=== PATIENT | male | born 1960 | race Caucasian/White ===

== ENCOUNTER 2017-06-11 20:25 | Emergency (ER) | payer MEDICARE, OTHER ==
[~2017-06-11] VITALS: Ht 165.1 cm; Wt 79.5 kg
[2017-06-11] MEDS ORDERED: TOPI100T37 PO (20:32)
[2017-06-11] MEDS ORDERED: LEVO100 PO (20:32)
[2017-06-11] MEDS ORDERED: ADV250 IH (20:32)
[2017-06-11] MEDS ORDERED: LAMO100 PO (20:32)
[2017-06-11] MEDS ORDERED: HYD25 PO (20:32)
[2017-06-11] MEDS ORDERED: CARV6 PO (20:32)
[2017-06-11] MEDS ORDERED: CLON2 PO (20:32)
[2017-06-11] MEDS ORDERED: LOSA50TA37 PO (20:32)
[2017-06-11] MEDS ORDERED: CARB200T6 PO (20:32)
[2017-06-11] MEDS ORDERED: VITAD400 PO (20:32)
[2017-06-11] MEDS ORDERED: OS500 PO (20:32)
[2017-06-11] MEDS ORDERED: LORazepam 2 MG/ML VIAL ONE (20:32)
[2017-06-11] MEDS ORDERED: ATOR40TA28 PO (20:32)
[2017-06-11] MEDS ORDERED: PERID15L MM (20:32)
[2017-06-11] MEDS ORDERED: LORazepam 2 MG/ML VIAL IVP ONE (20:45)
[2017-06-11 20:55] LABS: EOSINOPHILS % (AUTO) 0.2 % (1.0-6.0); HEMATOCRIT 39.7 % (41-53); HEMOGLOBIN 13.7 g/dL (13.5-17.5); LYMPHOCYTES # (AUTO) 2.8 K/uL (1.0-4.8); LYMPHOCYTES % (AUTO) 44.1 % (22.0-44.0); MEAN CORPUSCULAR HEMOGLOBIN 31.7 pg (26.0-34.0); MEAN CORPUSCULAR HGB CONC 34.4 G/dL (31.0-37.0); MEAN CORPUSCULAR VOLUME 92 fL (80-100); MONOCYTES # (AUTO) 0.7 K/uL (0.1-1.0); MONOCYTES % (AUTO) 10.2 % (2.0-9.0); NEUTROPHILS # (AUTO) 2.9 K/uL (1.8-7.7); NEUTROPHILS % (AUTO) 44.5 % (40.0-70.0); PLATELET COUNT (AUTO) 270 K/uL (150-450); RED BLOOD CELL COUNT(AUTO) 4.31 MIL/uL (4.50-5.90); RED CELL DISTRIBUTION WIDTH 12.9 % (11.5-14.5)
[2017-06-11 21:09] LABS: ANION GAP 8 mmol/L (8-16); CALCIUM, TOTAL 9.1 mg/dL (8.8-10.5); CARBON DIOXIDE 26 mmol/L (22-29); CHLORIDE 98 mmol/L (98-107); CREATININE 0.72 mg/dL (0.60-1.30); GLOMERULAR FILTR. RATE CALC > 60 mL/min (>60); GLUCOSE,RANDOM 105 mg/dL (70-110); POTASSIUM 4.5 mmol/L (3.5-5.1); SODIUM SERUM 132 mmol/L (136-145); UREA NITROGEN, BLOOD 13 mg/dL (7-18)
[2017-06-11 21:14] LABS: ALANINE AMINOTRANSFERASE 29 U/L (12-78); ALBUMIN 4.3 g/dL (3.4-5.0); ALKALINE PHOSPHATASE 134 U/L (46-116); ASPARTATE AMINOTRANSFERASE 27 U/L (15-37); BILIRUBIN,TOTAL 0.2 mg/dL (0.1-1.0); TOTAL PROTEIN, SERUM 8.6 g/dL (6.4-8.2)
[2017-06-11 21:25] LABS: CARBAMAZEPINE (TEGRETOL) 9.6 mcg/mL (4.0-12.0)
[2017-06-12 02:46] VITALS: BP 126/85
== END 2017-06-12 02:54 | disposition home or self-care (01) ==
LOC: EMS 20:27
DX: R56.9 Unspecified convulsions (principal); S00.01XA Abrasion of scalp, initial encounter; I10 Essential (primary) hypertension; E78.00 Pure hypercholesterolemia, unspecified; E03.9 Hypothyroidism, unspecified; J45.909 Unspecified asthma, uncomplicated; X58.XXXA Exposure to other specified factors, initial encounter; Y93.89 Activity, other specified; Y92.89 Other specified places as the place of occurrence of the external cause; Y99.8 Other external cause status
CPT/HCPCS: 36415; 70450; 80053; 80156; 85025; 93005; 96374; 99285; G0480; J2060

== ENCOUNTER 2018-03-12 18:42 | Emergency (ER) | payer MEDICARE, OTHER ==
[~2018-03-12] VITALS: Ht 172.7 cm; Wt 84.2 kg
[~2018-03-12 18:42] MED LIST: ADV250 IH; ATOR40TA28 PO; CARB200T6 PO; CARV6 PO; CLON2 PO; HYD25 PO; LAMO100 PO; LEVO100 PO; LOSA50TA64 PO; OS500 PO; PERID15L MM; TOPI100T37 PO; VITAD400 PO
[2018-03-12 19:06] VITALS: BP 147/98
[2018-03-12] MEDS ORDERED: FLUT1AER IH (19:19)
[2018-03-12 19:55] LABS: BASOPHILS % (AUTO) 0.4 % (0.0-2.0); EOSINOPHILS % (AUTO) 0 % (1.0-6.0); HEMATOCRIT 38.9 % (41-53); HEMOGLOBIN 13.4 g/dL (13.5-17.5); LYMPHOCYTES % (AUTO) 44.9 % (22.0-44.0); MEAN CORPUSCULAR HEMOGLOBIN 32.4 pg (26.0-34.0); MEAN CORPUSCULAR HGB CONC 34.5 G/dL (31.0-37.0); MEAN CORPUSCULAR VOLUME 94 fL (80-100); MONOCYTES # (AUTO) 0.4 K/uL (0.1-1.0); NEUTROPHILS % (AUTO) 45.7 % (40.0-70.0); PLATELET COUNT (AUTO) 283 K/uL (150-450); RED BLOOD CELL COUNT(AUTO) 4.14 MIL/uL (4.50-5.90)
[2018-03-12 20:04] LABS: ANION GAP 10 mmol/L (8-16); CALCIUM, TOTAL 9.3 mg/dL (8.8-10.5); CARBON DIOXIDE 26 mmol/L (22-29); CHLORIDE 98 mmol/L (98-107); CREATININE 0.85 mg/dL (0.60-1.30); GLOMERULAR FILTR. RATE CALC > 60 mL/min (>60); GLUCOSE,RANDOM 106 mg/dL (70-110); POTASSIUM 3.5 mmol/L (3.5-5.1); SODIUM SERUM 134 mmol/L (136-145); UREA NITROGEN, BLOOD 9 mg/dL (7-18)
[2018-03-12 20:10] LABS: AMMONIA 46 umol/L (11-32)
[2018-03-12 20:14] LABS: TROPONIN I < 0.02 ng/mL (0.00-0.05)
[2018-03-12] MEDS ORDERED: GuaiFENesin/D-METHORPHAN [SUGAR-FREE] 200-20MG/10 ML SYRUP UDCUP PO ONE (20:15)
[2018-03-12] MEDS ORDERED: ACETAMINOPHEN 500 MG TABLET PO ONE (20:15)
[2018-03-12 20:18] LABS: ALANINE AMINOTRANSFERASE 33 U/L (12-78); ALBUMIN 3.8 g/dL (3.4-5.0); ALKALINE PHOSPHATASE 102 U/L (46-116); ASPARTATE AMINOTRANSFERASE 31 U/L (15-37); BILIRUBIN,TOTAL 0.2 mg/dL (0.1-1.0); TOTAL PROTEIN, SERUM 7.7 g/dL (6.4-8.2)
[2018-03-12 20:30] LABS: CARBAMAZEPINE (TEGRETOL) 8.7 mcg/mL (4.0-12.0)
[2018-03-12] MEDS ORDERED: LACTULOSE 20 GM/30 ML SOLUTION UDCUP NG ONE (20:30)
[2018-03-12 21:03] LABS: AMPHET/METH SCREEN,URINE NEGATIVE (NEGATIVE); BARBITURATE SCREEN, URINE NEGATIVE (NEGATIVE); BENZODIAZEPINES SCREEN,URINE NEGATIVE (NEGATIVE); CANNABINOID SCREEN,URINE NEGATIVE (NEGATIVE); COCAINE SCREEN,URINE NEGATIVE (NEGATIVE); METHADONE SCREEN, URINE NEGATIVE (NEGATIVE); OPIATE SCREEN,URINE NEGATIVE (NEGATIVE)
[2018-03-12 21:04] LABS: PHENCYCLIDINE SCREEN,URINE NEGATIVE (NEGATIVE)
== END 2018-03-12 20:52 | disposition home or self-care (01) ==
LOC: EMS 18:42
DX: J06.9 Acute upper respiratory infection, unspecified (principal); R41.82 Altered mental status, unspecified; E72.20 Disorder of urea cycle metabolism, unspecified; J45.909 Unspecified asthma, uncomplicated; E78.00 Pure hypercholesterolemia, unspecified; I10 Essential (primary) hypertension; E03.9 Hypothyroidism, unspecified
CPT/HCPCS: 36415; 80053; 80156; 80307; 82140; 84484; 85025; 99284; G0480

== ENCOUNTER 2018-03-13 16:35 | Emergency (ER) | payer MEDICARE, OTHER ==
[~2018-03-13] VITALS: Ht 172.7 cm; Wt 72.7 kg
[~2018-03-13 16:35] MED LIST changes: +FLUT1AER IH
[2018-03-13] MEDS ORDERED: LORazepam 2 MG/ML VIAL IVP ONE ×2 (17:00→17:45)
[2018-03-13 17:17] LABS: BASOPHILS % (AUTO) 0.5 % (0.0-2.0); EOSINOPHILS % (AUTO) 0 % (1.0-6.0); HEMATOCRIT 40.4 % (41-53); HEMOGLOBIN 13.6 g/dL (13.5-17.5); LYMPHOCYTES # (AUTO) 2.3 K/uL (1.0-4.8); LYMPHOCYTES % (AUTO) 45.5 % (22.0-44.0); MEAN CORPUSCULAR HEMOGLOBIN 31.7 pg (26.0-34.0); MEAN CORPUSCULAR HGB CONC 33.6 G/dL (31.0-37.0); MEAN CORPUSCULAR VOLUME 94 fL (80-100); MONOCYTES # (AUTO) 0.4 K/uL (0.1-1.0); MONOCYTES % (AUTO) 8.4 % (2.0-9.0); NEUTROPHILS # (AUTO) 2.3 K/uL (1.8-7.7); NEUTROPHILS % (AUTO) 45.6 % (40.0-70.0); PLATELET COUNT (AUTO) 292 K/uL (150-450); RED BLOOD CELL COUNT(AUTO) 4.27 MIL/uL (4.50-5.90); RED CELL DISTRIBUTION WIDTH 13.1 % (11.5-14.5)
[2018-03-13 17:34] LABS: ANION GAP 8 mmol/L (8-16); CALCIUM, TOTAL 9.4 mg/dL (8.8-10.5); CARBON DIOXIDE 25 mmol/L (22-29); CHLORIDE 101 mmol/L (98-107); CREATININE 0.83 mg/dL (0.60-1.30); GLOMERULAR FILTR. RATE CALC > 60 mL/min (>60); GLUCOSE,RANDOM 128 mg/dL (70-110); POTASSIUM 3.8 mmol/L (3.5-5.1); SODIUM SERUM 134 mmol/L (136-145); UREA NITROGEN, BLOOD 12 mg/dL (7-18)
[2018-03-13 17:40] LABS: ALANINE AMINOTRANSFERASE 34 U/L (12-78); ALBUMIN 4.1 g/dL (3.4-5.0); ALKALINE PHOSPHATASE 133 U/L (46-116); ASPARTATE AMINOTRANSFERASE 30 U/L (15-37); CARBAMAZEPINE (TEGRETOL) 11.1 mcg/mL (4.0-12.0); LIPASE 161 U/L (73-393); TOTAL PROTEIN, SERUM 7.8 g/dL (6.4-8.2)
[2018-03-13 17:41] LABS: AMMONIA 35 umol/L (11-32)
[2018-03-13 17:43] LABS: TROPONIN I < 0.02 ng/mL (0.00-0.05)
[2018-03-13 18:21] LABS: BILIRUBIN,TOTAL 0.1 mg/dL (0.1-1.0)
[2018-03-13] MEDS ORDERED: KETOROLAC TROMETHAMINE 30 MG/ML VIAL IVP ONE (18:45)
[2018-03-13] MEDS ORDERED: ACETAMINOPHEN 500 MG TABLET PO ONE (18:45)
[2018-03-13] MEDS ORDERED: ClonazePAM 1 MG TABLET PO ONE (18:45)
[2018-03-13] MEDS ORDERED: TOPIRAMATE 100 MG TABLET PO ONE (19:45)
[2018-03-13] MEDS ORDERED: LamoTRIgine 100 MG TABLET PO ONE (19:45)
[2018-03-13] MEDS ORDERED: CarBAMazepine 200 MG TABLET PO ONE (19:45)
[2018-03-13 20:22] VITALS: BP 127/64
== END 2018-03-13 20:35 | disposition home or self-care (01) ==
LOC: EMS 16:37
DX: G40.909 Epilepsy, unspecified, not intractable, without status epilepticus (principal); E03.9 Hypothyroidism, unspecified; I10 Essential (primary) hypertension; J45.909 Unspecified asthma, uncomplicated; E78.00 Pure hypercholesterolemia, unspecified; Z79.899 Other long term (current) drug therapy
CPT/HCPCS: 71045; 80053; 80156; 82140; 83690; 84484; 85025; 93005; 96374; 96375; 99285; G0480; J1885; J2060

== ENCOUNTER 2018-03-13 21:46 | Inpatient (IN) | payer MEDICARE, OTHER ==
[~2018-03-13] VITALS: Ht 172.7 cm; Wt 86.6 kg
[~2018-03-13 21:46] MED LIST changes: -ADV250 IH; -HYD25 PO; -PERID15L MM
[2018-03-13 22:19] LABS: GLUCOSE,POINT OF CARE 100 MG/DL (70-110)
[2018-03-14] VITALS (7 sets, daily range): BP systolic 111–147; BP diastolic 56–86
[2018-03-14 09:52] LABS: AMPHET/METH SCREEN,URINE NEGATIVE (NEGATIVE); BARBITURATE SCREEN, URINE NEGATIVE (NEGATIVE); BENZODIAZEPINES SCREEN,URINE POSITIVE (NEGATIVE); CANNABINOID SCREEN,URINE NEGATIVE (NEGATIVE); COCAINE SCREEN,URINE NEGATIVE (NEGATIVE); METHADONE SCREEN, URINE NEGATIVE (NEGATIVE); OPIATE SCREEN,URINE NEGATIVE (NEGATIVE); PHENCYCLIDINE SCREEN,URINE NEGATIVE (NEGATIVE)
[2018-03-14 10:21] LABS: APPEARANCE,URINE CLOUDY (CLEAR); BILIRUBIN,URINE NEGATIVE (NEGATIVE); GLUCOSE, URINE (UA) NEGATIVE (NEGATIVE); KETONES,URINE NEGATIVE (NEGATIVE); LEUKOCYTE ESTERASE ,URINE SMALL (NEGATIVE); NITRATE,URINE NEGATIVE (NEGATIVE); OCCULT BLOOD,URINE LARGE (NEGATIVE); PROTEIN,URINE POS 1+ (NEGATIVE); UROBILINOGEN,URINE 0.2 mg/dL (<=1.0)
[2018-03-14 10:32] LABS: BACTERIA,URINE Few /HPF (None Seen); CALCIUM OXALATE CRYSTALS,UR Few /LPF (None Seen); SQUAMOUS EPITHELIAL CELL,UR Few /LPF (None Seen)
[2018-03-14] MEDS ORDERED: MAGNESIUM HYDROXIDE SUSPENSION 30 ML UDCUP PO PRN (11:00)
[2018-03-14] MEDS ORDERED: LORazepam 2 MG/ML VIAL IM PRN (11:00)
[2018-03-14] MEDS ORDERED: ONDANSETRON HCL 4 MG/2 ML VIAL IVP PRN (11:00)
[2018-03-14] MEDS ORDERED: ACETAMINOPHEN 325 MG TABLET PO PRN (11:00)
[2018-03-14] MEDS ORDERED: ZOLPIDEM TARTRATE 5 MG TABLET PO PRN (11:00)
[2018-03-14] MEDS ORDERED: MORPHINE SULFATE 4 MG/ML SYRINGE IVP PRN (11:00)
[2018-03-14] MEDS ORDERED: GuaiFENesin/D-METHORPHAN [SUGAR-FREE] 200-20MG/10 ML SYRUP UDCUP PO PRN (11:00)
[2018-03-14] MEDS ORDERED: BISACODYL 10 MG RECTAL RECTAL SUPPOSITORY PR PRN (11:00)
[2018-03-14] MEDS ORDERED: HYDROCODONE/ACETAMINOPHEN 5-325 MG TABLET PO PRN (11:00)
[2018-03-14] MEDS ORDERED: SODIUM CHLORIDE 0.9% 500 ML IV ONE (11:50)
[2018-03-14] MEDS: CefTRIAXone 1 GM/DEXTROSE 50 ML IV SCH (11:53)
[2018-03-14 12:08] LABS: ANION GAP 10 mmol/L (8-16); BASOPHILS % (AUTO) 0.7 % (0.0-2.0); CALCIUM, TOTAL 9.1 mg/dL (8.8-10.5); CARBON DIOXIDE 24 mmol/L (22-29); CHLORIDE 101 mmol/L (98-107); CREATININE 0.78 mg/dL (0.60-1.30); EOSINOPHILS % (AUTO) 0 % (1.0-6.0); GLOMERULAR FILTR. RATE CALC > 60 mL/min (>60); GLUCOSE,RANDOM 92 mg/dL (70-110); HEMATOCRIT 40.1 % (41-53); HEMOGLOBIN 13.6 g/dL (13.5-17.5); LYMPHOCYTES # (AUTO) 2.1 K/uL (1.0-4.8); LYMPHOCYTES % (AUTO) 33.8 % (22.0-44.0); MEAN CORPUSCULAR HEMOGLOBIN 31.9 pg (26.0-34.0); MEAN CORPUSCULAR HGB CONC 33.8 G/dL (31.0-37.0); MEAN CORPUSCULAR VOLUME 94 fL (80-100); MONOCYTES # (AUTO) 0.7 K/uL (0.1-1.0); MONOCYTES % (AUTO) 10.9 % (2.0-9.0); NEUTROPHILS # (AUTO) 3.4 K/uL (1.8-7.7); NEUTROPHILS % (AUTO) 54.6 % (40.0-70.0); PLATELET COUNT (AUTO) 288 K/uL (150-450); POTASSIUM 3.7 mmol/L (3.5-5.1); RED BLOOD CELL COUNT(AUTO) 4.26 MIL/uL (4.50-5.90); SODIUM SERUM 135 mmol/L (136-145); UREA NITROGEN, BLOOD 16 mg/dL (7-18)
[2018-03-14] MEDS: ClonazePAM 1 MG TABLET PO SCH ×2 (15:52→20:46)
[2018-03-14] MEDS: HEPARIN SODIUM,PORCINE 5,000 UNITS/ML VIAL SQ SCH ×2 (15:52→23:43)
[2018-03-14] MEDS: LamoTRIgine 100 MG TABLET PO SCH (20:46)
[2018-03-14] MEDS: TOPIRAMATE 100 MG TABLET PO SCH (20:46)
[2018-03-14] MEDS: CarBAMazepine 200 MG TABLET PO SCH (20:46)
[2018-03-14] MEDS: DOCUSATE SODIUM 100 MG CAPSULE PO SCH (20:46)
[2018-03-14] MEDS: CALCIUM OYSTER SHELL 500 MG TABLET PO SCH (20:46)
[2018-03-14] MEDS: CARVEDILOL 6.25 MG TABLET PO SCH (20:47)
[2018-03-15] VITALS (7 sets, daily range): BP systolic 118–139; BP diastolic 65–78
[2018-03-15] MEDS: LEVOTHYROXINE SODIUM 100 MCG TABLET PO SCH (06:28)
[2018-03-15] MEDS: CALCIUM OYSTER SHELL 500 MG TABLET PO SCH ×2 (09:13→20:45)
[2018-03-15] MEDS: ATORVASTATIN CALCIUM 40 MG TABLET PO SCH (09:14)
[2018-03-15] MEDS: HEPARIN SODIUM,PORCINE 5,000 UNITS/ML VIAL SQ SCH ×3 (09:14→23:26)
[2018-03-15] MEDS: DOCUSATE SODIUM 100 MG CAPSULE PO SCH ×2 (09:14→20:45)
[2018-03-15] MEDS: PANTOPRAZOLE SODIUM 40 MG DR TABLET PO SCH (09:14)
[2018-03-15] MEDS: LOSARTAN POTASSIUM 50 MG TABLET PO SCH (09:15)
[2018-03-15] MEDS: CHOLECALCIFEROL (VIT D3) 400 UNITS TABLET PO SCH (09:15)
[2018-03-15] MEDS: ClonazePAM 1 MG TABLET PO SCH ×3 (09:15→20:46)
[2018-03-15] MEDS: FLUTICASONE/VILANTEROL 100-25 MCG/INH INHALER [14] IH SCH (09:16)
[2018-03-15] MEDS: LamoTRIgine 100 MG TABLET PO SCH ×2 (09:16→20:46)
[2018-03-15] MEDS: TOPIRAMATE 100 MG TABLET PO SCH ×2 (09:17→20:46)
[2018-03-15] MEDS: CarBAMazepine 200 MG TABLET PO SCH ×2 (09:17→20:46)
[2018-03-15] MEDS ORDERED: GuaiFENesin/D-METHORPHAN [SUGAR-FREE] 200-20MG/10 ML SYRUP UDCUP PO PRN (11:00)
[2018-03-15] MEDS: CARVEDILOL 6.25 MG TABLET PO SCH ×2 (11:23→20:45)
[2018-03-15] MEDS: CefTRIAXone 1 GM/DEXTROSE 50 ML IV SCH (11:23)
[2018-03-15] MEDS ORDERED: LORazepam 2 MG/ML VIAL IVP PRN (23:00)
[2018-03-16 04:04] VITALS: BP 115/68
[2018-03-16] MEDS: LEVOTHYROXINE SODIUM 100 MCG TABLET PO SCH (05:36)
[2018-03-16 07:37] VITALS: BP 121/69
[2018-03-16 08:10] LABS: INFLUENZA TYPE A NEGATIVE FOR TYPE A (NEGATIVE); INFLUENZA TYPE B NEGATIVE FOR TYPE B (NEGATIVE)
[2018-03-16] MEDS: LOSARTAN POTASSIUM 50 MG TABLET PO SCH (08:49)
[2018-03-16] MEDS: DOCUSATE SODIUM 100 MG CAPSULE PO SCH ×2 (08:49→20:48)
[2018-03-16] MEDS: PANTOPRAZOLE SODIUM 40 MG DR TABLET PO SCH (08:49)
[2018-03-16] MEDS: HEPARIN SODIUM,PORCINE 5,000 UNITS/ML VIAL SQ SCH ×2 (08:49→16:48)
[2018-03-16] MEDS: CALCIUM OYSTER SHELL 500 MG TABLET PO SCH ×2 (08:49→20:48)
[2018-03-16] MEDS: FLUTICASONE/VILANTEROL 100-25 MCG/INH INHALER [14] IH SCH (08:50)
[2018-03-16] MEDS: ClonazePAM 1 MG TABLET PO SCH ×3 (08:50→20:48)
[2018-03-16] MEDS: ATORVASTATIN CALCIUM 40 MG TABLET PO SCH (08:50)
[2018-03-16] MEDS: CHOLECALCIFEROL (VIT D3) 400 UNITS TABLET PO SCH (08:50)
[2018-03-16] MEDS: CarBAMazepine 200 MG TABLET PO SCH ×2 (08:51→20:49)
[2018-03-16] MEDS: TOPIRAMATE 100 MG TABLET PO SCH ×2 (08:51→20:49)
[2018-03-16] MEDS: LamoTRIgine 100 MG TABLET PO SCH ×2 (08:52→20:48)
[2018-03-16 11:14] VITALS: BP 137/78
[2018-03-16] MEDS: CARVEDILOL 6.25 MG TABLET PO SCH ×2 (11:27→20:48)
[2018-03-16] MEDS: CefTRIAXone 1 GM/DEXTROSE 50 ML IV SCH (11:28)
[2018-03-16 15:22] VITALS: BP 109/70
[2018-03-16 20:07] VITALS: BP 114/66
[2018-03-17] MEDS: HEPARIN SODIUM,PORCINE 5,000 UNITS/ML VIAL SQ SCH ×3 (00:15→16:00)
[2018-03-17 00:30] VITALS: BP 117/71
[2018-03-17 04:50] VITALS: BP 120/70
[2018-03-17] MEDS: LEVOTHYROXINE SODIUM 100 MCG TABLET PO SCH (06:44)
[2018-03-17 08:25] VITALS: BP 120/71
[2018-03-17] MEDS: DOCUSATE SODIUM 100 MG CAPSULE PO SCH (09:06)
[2018-03-17] MEDS: CHOLECALCIFEROL (VIT D3) 400 UNITS TABLET PO SCH (09:06)
[2018-03-17] MEDS: CARVEDILOL 6.25 MG TABLET PO SCH (09:07)
[2018-03-17] MEDS: ClonazePAM 1 MG TABLET PO SCH (09:07)
[2018-03-17] MEDS: CALCIUM OYSTER SHELL 500 MG TABLET PO SCH (09:07)
[2018-03-17] MEDS: PANTOPRAZOLE SODIUM 40 MG DR TABLET PO SCH (09:08)
[2018-03-17] MEDS: CarBAMazepine 200 MG TABLET PO SCH (09:08)
[2018-03-17] MEDS: LamoTRIgine 100 MG TABLET PO SCH (09:08)
[2018-03-17] MEDS: LOSARTAN POTASSIUM 50 MG TABLET PO SCH (09:08)
[2018-03-17] MEDS: TOPIRAMATE 100 MG TABLET PO SCH (09:08)
[2018-03-17] MEDS: FLUTICASONE/VILANTEROL 100-25 MCG/INH INHALER [14] IH SCH (09:10)
[2018-03-17] MEDS: ATORVASTATIN CALCIUM 40 MG TABLET PO SCH (09:23)
[2018-03-17 11:43] VITALS: BP 122/69
[2018-03-17 15:20] VITALS: BP 114/60
== END 2018-03-17 17:17 | disposition home or self-care (01) | DRG 101 ==
LOC: EMS 21:48 → 5N 03-14 00:01
PROVIDERS: ADMIT Internal Medicine; ATTEND Internal Medicine
DX: G40.909 Epilepsy, unspecified, not intractable, without status epilepticus (principal); N39.0 Urinary tract infection, site not specified; J06.9 Acute upper respiratory infection, unspecified; E78.5 Hyperlipidemia, unspecified; I10 Essential (primary) hypertension; E03.9 Hypothyroidism, unspecified; E55.9 Vitamin D deficiency, unspecified; E78.00 Pure hypercholesterolemia, unspecified; F29 Unspecified psychosis not due to a substance or known physiological condition; J45.909 Unspecified asthma, uncomplicated; Z79.899 Other long term (current) drug therapy
CPT/HCPCS: 70450; 80307; 87086; 87804; 93005; G0378; J0696; J1644; J2060; J2405; J7040

== ENCOUNTER 2018-10-11 10:14 | Inpatient (IN) | payer MEDICARE, OTHER ==
[~2018-10-11] VITALS: Ht 172.7 cm; Wt 87.2 kg
[~2018-10-11 10:14] MED LIST changes: -LOSA50TA64 PO
[2018-10-11] MEDS ORDERED: CLON1 PO (10:38)
[2018-10-11 11:14] LABS: BASOPHILS % (AUTO) 0.3 % (0.0-2.0); EOSINOPHILS % (AUTO) 0 % (1.0-6.0); HEMATOCRIT 39.6 % (41-53); HEMOGLOBIN 13.3 g/dL (13.5-17.5); LYMPHOCYTES # (AUTO) 1.5 K/uL (1.0-4.8); MEAN CORPUSCULAR HEMOGLOBIN 32.3 pg (26.0-34.0); MEAN CORPUSCULAR HGB CONC 33.5 G/dL (31.0-37.0); MEAN CORPUSCULAR VOLUME 97 fL (80-100); MONOCYTES # (AUTO) 0.4 K/uL (0.1-1.0); MONOCYTES % (AUTO) 8.3 % (2.0-9.0); NEUTROPHILS # (AUTO) 3.1 K/uL (1.8-7.7); NEUTROPHILS % (AUTO) 61.4 % (40.0-70.0); PLATELET COUNT (AUTO) 266 K/uL (150-450); RED BLOOD CELL COUNT(AUTO) 4.11 MIL/uL (4.50-5.90); RED CELL DISTRIBUTION WIDTH 13.1 % (11.5-14.5)
[2018-10-11 11:24] LABS: ANION GAP 8 mmol/L (8-16); CALCIUM, TOTAL 9.9 mg/dL (8.8-10.5); CARBON DIOXIDE 24 mmol/L (22-29); CHLORIDE 102 mmol/L (98-107); CREATININE 0.89 mg/dL (0.60-1.30); GLOMERULAR FILTR. RATE CALC > 60 mL/min (>60); GLUCOSE,RANDOM 93 mg/dL (70-110); POTASSIUM 3.6 mmol/L (3.5-5.1); SODIUM SERUM 134 mmol/L (136-145); UREA NITROGEN, BLOOD 15 mg/dL (7-18)
[2018-10-11 11:29] LABS: PROTHROMBIN TIME 10.1 SEC (9.4-11.6)
[2018-10-11 11:31] LABS: B-TYPE NATRIURETIC PEPTIDE 13 pg/mL (0-100)
[2018-10-11 11:47] LABS: AMPHET/METH SCREEN,URINE NEGATIVE (NEGATIVE); BARBITURATE SCREEN, URINE NEGATIVE (NEGATIVE); BENZODIAZEPINES SCREEN,URINE NEGATIVE (NEGATIVE); CANNABINOID SCREEN,URINE NEGATIVE (NEGATIVE); COCAINE SCREEN,URINE NEGATIVE (NEGATIVE); METHADONE SCREEN, URINE NEGATIVE (NEGATIVE); OPIATE SCREEN,URINE NEGATIVE (NEGATIVE)
[2018-10-11 11:48] LABS: PHENCYCLIDINE SCREEN,URINE NEGATIVE (NEGATIVE)
[2018-10-11 11:54] LABS: ALANINE AMINOTRANSFERASE 18 U/L (12-78); ALBUMIN 4.2 g/dL (3.4-5.0); ALKALINE PHOSPHATASE 108 U/L (46-116); ASPARTATE AMINOTRANSFERASE 23 U/L (15-37); BILIRUBIN,TOTAL 0.3 mg/dL (0.1-1.0); CREATINE KINASE, TOTAL ONLY 127 U/L (39-308); LIPASE 103 U/L (73-393); TOTAL PROTEIN, SERUM 7.6 g/dL (6.4-8.2)
[2018-10-11 12:17] LABS: APPEARANCE,URINE CLOUDY (CLEAR); BILIRUBIN,URINE NEGATIVE (NEGATIVE); GLUCOSE, URINE (UA) NEGATIVE (NEGATIVE); KETONES,URINE NEGATIVE (NEGATIVE); LEUKOCYTE ESTERASE ,URINE TRACE (NEGATIVE); NITRATE,URINE NEGATIVE (NEGATIVE); OCCULT BLOOD,URINE LARGE (NEGATIVE); PH,URINE 7.5 (5.0-8.0); PROTEIN,URINE TRACE (NEGATIVE); UROBILINOGEN,URINE 0.2 mg/dL (<=1.0)
[2018-10-11 12:19] LABS: BACTERIA,URINE Many /HPF (None Seen); RBC,URINE 51-100 /HPF (0-2); SQUAMOUS EPITHELIAL CELL,UR Few /LPF (None Seen); WBC,URINE 0-2 /HPF (0-5)
[2018-10-11 12:32] LABS: GLUCOSE,POINT OF CARE 106 MG/DL (70-110)
[2018-10-11] MEDS: CefTRIAXone 1 GM/DEXTROSE 50 ML IV ONE ×2 (13:36→14:02)
[2018-10-11] MEDS ORDERED: IOVERSOL 350 MG/ML 150 ML VIAL ONE (14:28)
[2018-10-11] MEDS ORDERED: LORazepam 2 MG TABLET PO PRN (19:15)
[2018-10-11] MEDS ORDERED: HALOPERIDOL 5 MG TABLET PO PRN (19:15)
[2018-10-11] MEDS ORDERED: ZOLPIDEM TARTRATE 10 MG TABLET PO PRN (19:15)
[2018-10-12] MEDS ORDERED: LevETIRAcetam 1,000 MG in DEXTROSE 5%-WATER 100 ML IV ONE (11:15)
[2018-10-12] MEDS ORDERED: LamoTRIgine 100 MG TABLET PO ONE (13:30)
[2018-10-12] MEDS ORDERED: BISACODYL 10 MG RECTAL RECTAL SUPPOSITORY PR PRN (14:00)
[2018-10-12] MEDS ORDERED: ZOLPIDEM TARTRATE 5 MG TABLET PO PRN (14:00)
[2018-10-12] MEDS ORDERED: MAGNESIUM HYDROXIDE SUSPENSION 30 ML UDCUP PO PRN (14:00)
[2018-10-12] MEDS ORDERED: HYDROCODONE/ACETAMINOPHEN 5-325 MG TABLET PO PRN (14:00)
[2018-10-12] MEDS ORDERED: ONDANSETRON HCL 4 MG/2 ML VIAL IVP PRN (14:00)
[2018-10-12] MEDS ORDERED: ACETAMINOPHEN 325 MG TABLET PO PRN (14:00)
[2018-10-12] MEDS ORDERED: MORPHINE SULFATE 2 MG/ML SYRINGE IVP PRN (14:00)
[2018-10-12] MEDS ORDERED: LORazepam 2 MG/ML VIAL IM PRN (14:00)
[2018-10-12] MEDS: CarBAMazepine 200 MG TABLET PO SCH ×2 (17:00→20:39)
[2018-10-12] MEDS: CALCIUM OYSTER SHELL 500 MG TABLET PO SCH ×2 (17:00→20:39)
[2018-10-12] MEDS: CARVEDILOL 6.25 MG TABLET PO SCH ×2 (17:00→20:39)
[2018-10-12] MEDS: DOCUSATE SODIUM 100 MG CAPSULE PO SCH ×2 (17:00→20:39)
[2018-10-12 19:53] VITALS: BP 124/78
[2018-10-12] MEDS ORDERED: SODIUM CHLORIDE 0.9% 250 ML IV ONE (23:33)
[2018-10-12] MEDS: HEPARIN SODIUM,PORCINE 5,000 UNITS/ML VIAL SQ SCH (23:42)
[2018-10-12] MEDS: LevETIRAcetam 1,000 MG in DEXTROSE 5%-WATER 100 ML IV SCH (23:42)
[2018-10-12 23:46] VITALS: BP 126/76
[2018-10-13 05:22] VITALS: BP 132/71
[2018-10-13 06:06] LABS: BASOPHILS % (AUTO) 0.3 % (0.0-2.0); EOSINOPHILS % (AUTO) 0 % (1.0-6.0); HEMATOCRIT 42.9 % (41-53); HEMOGLOBIN 14.3 g/dL (13.5-17.5); LYMPHOCYTES # (AUTO) 2.1 K/uL (1.0-4.8); MEAN CORPUSCULAR HEMOGLOBIN 32.3 pg (26.0-34.0); MEAN CORPUSCULAR HGB CONC 33.4 G/dL (31.0-37.0); MEAN CORPUSCULAR VOLUME 97 fL (80-100); MONOCYTES # (AUTO) 0.5 K/uL (0.1-1.0); MONOCYTES % (AUTO) 8.6 % (2.0-9.0); NEUTROPHILS # (AUTO) 2.8 K/uL (1.8-7.7); NEUTROPHILS % (AUTO) 52.1 % (40.0-70.0); PLATELET COUNT (AUTO) 291 K/uL (150-450); RED BLOOD CELL COUNT(AUTO) 4.44 MIL/uL (4.50-5.90); RED CELL DISTRIBUTION WIDTH 13.4 % (11.5-14.5)
[2018-10-13] MEDS: LEVOTHYROXINE SODIUM 100 MCG TABLET PO SCH (06:19)
[2018-10-13 06:32] LABS: ANION GAP 11 mmol/L (8-16); CALCIUM, TOTAL 9.8 mg/dL (8.8-10.5); CARBON DIOXIDE 24 mmol/L (22-29); CHLORIDE 100 mmol/L (98-107); CHOL/HDL RATIO 2.6 (4.2-7.3); CHOLESTEROL 127 mg/dL (131-200); CREATININE 0.72 mg/dL (0.60-1.30); FREE T4 (FREE THYROXINE) 0.88 ng/dL (0.76-1.46); GLOMERULAR FILTR. RATE CALC > 60 mL/min (>60); GLUCOSE,RANDOM 95 mg/dL (70-110); HDL CHOLESTEROL 48 mg/dL (40-60); LDL CHOL (CALC.) 65 mg/dL (0-130); POTASSIUM 3.5 mmol/L (3.5-5.1); SODIUM SERUM 135 mmol/L (136-145); TRIGLYCERIDES 72 mg/dL (15-150); UREA NITROGEN, BLOOD 8 mg/dL (7-18)
[2018-10-13 08:15] VITALS: BP 127/77
[2018-10-13] MEDS: CARVEDILOL 6.25 MG TABLET PO SCH ×2 (08:52→20:26)
[2018-10-13] MEDS: CALCIUM OYSTER SHELL 500 MG TABLET PO SCH ×2 (08:52→20:26)
[2018-10-13] MEDS: PANTOPRAZOLE SODIUM 40 MG DR TABLET PO SCH (08:52)
[2018-10-13] MEDS: DOCUSATE SODIUM 100 MG CAPSULE PO SCH ×2 (08:52→20:25)
[2018-10-13] MEDS: CarBAMazepine 200 MG TABLET PO SCH ×2 (08:52→20:26)
[2018-10-13] MEDS: FLUTICASONE/VILANTEROL 100-25 MCG/INH INHALER [14] IH SCH (08:52)
[2018-10-13] MEDS: ATORVASTATIN CALCIUM 40 MG TABLET PO SCH (08:52)
[2018-10-13] MEDS: HEPARIN SODIUM,PORCINE 5,000 UNITS/ML VIAL SQ SCH ×2 (08:52→16:13)
[2018-10-13] MEDS ORDERED: CHOLECALCIFEROL (VIT D3) 400 UNITS TABLET PO SCH (09:00)
[2018-10-13 11:15] VITALS: BP 132/74
[2018-10-13] MEDS: LevETIRAcetam 1,000 MG in DEXTROSE 5%-WATER 100 ML IV SCH (12:59)
[2018-10-13 15:31] VITALS: BP 117/57
[2018-10-13 19:25] VITALS: BP 120/78
[2018-10-14 00:04] VITALS: BP 129/76
[2018-10-14] MEDS: LevETIRAcetam 1,000 MG in DEXTROSE 5%-WATER 100 ML IV SCH ×2 (00:12→13:09)
[2018-10-14] MEDS: HEPARIN SODIUM,PORCINE 5,000 UNITS/ML VIAL SQ SCH ×2 (00:12→10:12)
[2018-10-14 05:22] VITALS: BP 118/74
[2018-10-14] MEDS: LEVOTHYROXINE SODIUM 100 MCG TABLET PO SCH (06:22)
[2018-10-14 08:00] VITALS: BP 130/70
[2018-10-14] MEDS ORDERED: CHOLECALCIFEROL (VIT D3) 2,000 UNITS TABLET PO SCH (09:00)
[2018-10-14] MEDS: CALCIUM OYSTER SHELL 500 MG TABLET PO SCH (10:11)
[2018-10-14] MEDS: FLUTICASONE/VILANTEROL 100-25 MCG/INH INHALER [14] IH SCH (10:11)
[2018-10-14] MEDS: PANTOPRAZOLE SODIUM 40 MG DR TABLET PO SCH (10:11)
[2018-10-14] MEDS: CARVEDILOL 6.25 MG TABLET PO SCH (10:12)
[2018-10-14] MEDS: ATORVASTATIN CALCIUM 40 MG TABLET PO SCH (10:12)
[2018-10-14] MEDS: DOCUSATE SODIUM 100 MG CAPSULE PO SCH (10:12)
[2018-10-14] MEDS: CarBAMazepine 200 MG TABLET PO SCH (10:12)
[2018-10-14] MEDS ORDERED: ZOLP5 PO (11:05)
[2018-10-14 11:36] VITALS: BP 128/75
== END 2018-10-14 13:50 | disposition home or self-care (01) | DRG 101 ==
LOC: EMS 10:14 → B3A 10-12 05:00 → B2S 10-12 05:00 → 5S 10-12 16:00
PROVIDERS: ADMIT Psychiatry & Neurology Child & Adolescent Psychiatry; ATTEND Internal Medicine
DX: G40.802 Other epilepsy, not intractable, without status epilepticus (principal); G93.49 Other encephalopathy; I10 Essential (primary) hypertension; E78.5 Hyperlipidemia, unspecified; E55.9 Vitamin D deficiency, unspecified; E03.9 Hypothyroidism, unspecified; J44.9 Chronic obstructive pulmonary disease, unspecified; K21.9 Gastro-esophageal reflux disease without esophagitis; E78.00 Pure hypercholesterolemia, unspecified; F25.0 Schizoaffective disorder, bipolar type; Z79.899 Other long term (current) drug therapy
CPT/HCPCS: 70450; 70496; 70498; 84146; 84436; 84439; 87040; 87086; 93005; 95816; 96365; G0480; J0696; J0712; J1644; J7050; J7060

== ENCOUNTER 2019-01-24 01:11 | Emergency (ER) | payer MEDICARE, OTHER ==
[~2019-01-24] VITALS: Ht 172.7 cm; Wt 79.5 kg
[~2019-01-24 01:11] MED LIST changes: +ZOLP5 PO
[2019-01-24] MEDS ORDERED: LURA40 PO (01:19)
[2019-01-24] MEDS ORDERED: SODIUM CHLORIDE 0.9% 1,000 ML IV ONE (01:30)
[2019-01-24] MEDS ORDERED: ONDANSETRON HCL 4 MG/2 ML VIAL IVP ONE (01:30)
[2019-01-24] MEDS ORDERED: FAMOTIDINE 10 MG/ML 2 ML VIAL IVP ONE (01:30)
[2019-01-24] MEDS ORDERED: MAG HYDROX/AL HYDROX/SIMETH 30 ML SUSP UDCUP PO ONE (01:30)
[2019-01-24 01:58] LABS: BASOPHILS % (AUTO) 0.2 % (0.0-2.0); EOSINOPHILS % (AUTO) 0 % (1.0-6.0); HEMATOCRIT 40.1 % (41-53); HEMOGLOBIN 13.9 g/dL (13.5-17.5); LYMPHOCYTES # (AUTO) 1.2 K/uL (1.0-4.8); MEAN CORPUSCULAR HEMOGLOBIN 32.3 pg (26.0-34.0); MEAN CORPUSCULAR HGB CONC 34.6 G/dL (31.0-37.0); MEAN CORPUSCULAR VOLUME 93 fL (80-100); MONOCYTES # (AUTO) 0.4 K/uL (0.1-1.0); MONOCYTES % (AUTO) 5.8 % (2.0-9.0); NEUTROPHILS # (AUTO) 4.7 K/uL (1.8-7.7); PLATELET COUNT (AUTO) 272 K/uL (150-450); RED BLOOD CELL COUNT(AUTO) 4.29 MIL/uL (4.50-5.90)
[2019-01-24 02:04] LABS: ALANINE AMINOTRANSFERASE 18 U/L (12-78); ALKALINE PHOSPHATASE 102 U/L (46-116); ANION GAP 10 mmol/L (8-16); ASPARTATE AMINOTRANSFERASE 19 U/L (15-37); BILIRUBIN,TOTAL 0.3 mg/dL (0.1-1.0); CALCIUM, TOTAL 9.3 mg/dL (8.8-10.5); CARBON DIOXIDE 24 mmol/L (22-29); CHLORIDE 95 mmol/L (98-107); CREATININE 0.74 mg/dL (0.60-1.30); GLOMERULAR FILTR. RATE CALC > 60 mL/min (>60); GLUCOSE,RANDOM 129 mg/dL (70-110); SODIUM SERUM 129 mmol/L (136-145); UREA NITROGEN, BLOOD 11 mg/dL (7-18)
[2019-01-24 02:05] LABS: ALBUMIN 4.1 g/dL (3.4-5.0); LIPASE 84 U/L (73-393)
[2019-01-24] MEDS ORDERED: POTASSIUM CHLORIDE 20 MEQ ER TABLET PO ONE (02:30)
[2019-01-24 02:57] VITALS: BP 133/71
[2019-01-24] MEDS ORDERED: CHOL100018 PO (10:53)
== END 2019-01-24 03:41 | disposition home or self-care (01) ==
LOC: EMS 01:13
DX: R11.2 Nausea with vomiting, unspecified (principal); J45.909 Unspecified asthma, uncomplicated; K21.9 Gastro-esophageal reflux disease without esophagitis; I10 Essential (primary) hypertension; E78.00 Pure hypercholesterolemia, unspecified; E03.9 Hypothyroidism, unspecified
CPT/HCPCS: 36415; 80053; 83690; 85025; 96361; 96374; 96375; 99285; J2405; J3490; J7030

== ENCOUNTER 2019-01-24 09:39 | Emergency (ER) | payer MEDICARE, OTHER ==
[~2019-01-24] VITALS: Ht 172.7 cm; Wt 78.4 kg
[~2019-01-24 09:39] MED LIST changes: +LURA40 PO
[2019-01-24 10:11] LABS: BASOPHILS % (AUTO) 0.3 % (0.0-2.0); EOSINOPHILS % (AUTO) 0 % (1.0-6.0); HEMATOCRIT 42.2 % (41-53); HEMOGLOBIN 14.5 g/dL (13.5-17.5); LYMPHOCYTES # (AUTO) 1.3 K/uL (1.0-4.8); LYMPHOCYTES % (AUTO) 17.4 % (22.0-44.0); MEAN CORPUSCULAR HEMOGLOBIN 32.3 pg (26.0-34.0); MEAN CORPUSCULAR HGB CONC 34.4 G/dL (31.0-37.0); MEAN CORPUSCULAR VOLUME 94 fL (80-100); MONOCYTES # (AUTO) 0.6 K/uL (0.1-1.0); MONOCYTES % (AUTO) 8.3 % (2.0-9.0); NEUTROPHILS # (AUTO) 5.7 K/uL (1.8-7.7); PLATELET COUNT (AUTO) 293 K/uL (150-450); RED BLOOD CELL COUNT(AUTO) 4.49 MIL/uL (4.50-5.90); RED CELL DISTRIBUTION WIDTH 13.3 % (11.5-14.5)
[2019-01-24] MEDS ORDERED: TOPIRAMATE 25 MG TABLET PO ONE (10:30)
[2019-01-24] MEDS ORDERED: LORazepam 2 MG/ML VIAL IVP ONE (10:30)
[2019-01-24] MEDS ORDERED: TOPIRAMATE 100 MG TABLET PO ONE (10:45)
[2019-01-24] MEDS ORDERED: CHOL100018 PO (10:53)
[2019-01-24] MEDS ORDERED: LORazepam 2 MG TABLET PO ONE (11:00)
[2019-01-24 11:11] LABS: ANION GAP 10 mmol/L (8-16); CALCIUM, TOTAL 9.7 mg/dL (8.8-10.5); CARBON DIOXIDE 24 mmol/L (22-29); CHLORIDE 102 mmol/L (98-107); CREATININE 0.86 mg/dL (0.60-1.30); GLOMERULAR FILTR. RATE CALC > 60 mL/min (>60); GLUCOSE,RANDOM 111 mg/dL (70-110); POTASSIUM 3.7 mmol/L (3.5-5.1); SODIUM SERUM 136 mmol/L (136-145); UREA NITROGEN, BLOOD 9 mg/dL (7-18)
[2019-01-24 11:14] VITALS: BP 123/90
[2019-01-24 11:17] LABS: ALANINE AMINOTRANSFERASE 23 U/L (12-78); ALBUMIN 4.3 g/dL (3.4-5.0); ALKALINE PHOSPHATASE 108 U/L (46-116); ASPARTATE AMINOTRANSFERASE 21 U/L (15-37); BILIRUBIN,TOTAL 0.3 mg/dL (0.1-1.0); CARBAMAZEPINE (TEGRETOL) 8.6 mcg/mL (4.0-12.0); TOTAL PROTEIN, SERUM 8.6 g/dL (6.4-8.2)
== END 2019-01-24 11:45 | disposition home or self-care (01) ==
LOC: EMS 09:40
DX: G40.909 Epilepsy, unspecified, not intractable, without status epilepticus (principal); E78.00 Pure hypercholesterolemia, unspecified; E03.9 Hypothyroidism, unspecified; I10 Essential (primary) hypertension; J45.909 Unspecified asthma, uncomplicated; K21.9 Gastro-esophageal reflux disease without esophagitis; Z79.899 Other long term (current) drug therapy; Z98.890 Other specified postprocedural states
CPT/HCPCS: 36415; 80053; 80156; 85025; 99283; G0480; J2060